=== PATIENT | female | born 1995 | race Caucasian/White ===

== ENCOUNTER 2020-10-23 13:59 | Outpatient (RCR) | payer MEDICAID ==
[~2020-10-23 13:59] MED LIST: NO HOME MEDICATIONS
== END 2021-01-21 | disposition still patient (30) ==
LOC: PT
DX: M54.42 Lumbago with sciatica, left side (principal); M54.41 Lumbago with sciatica, right side; G89.29 Other chronic pain

== ENCOUNTER → 2021-10-04 | Outpatient (CLI) | payer MEDICAID | LOC: RAD 19:00 | DX: M54.41 Lumbago with sciatica, right side (principal); M54.42 Lumbago with sciatica, left side; G89.29 Other chronic pain ==

== ENCOUNTER 2023-05-31 12:57 | Emergency (ER) | payer MEDICAID ==
[~2023-05-31] VITALS: Ht 162.6 cm; Wt 54.4 kg
[~2023-05-31 12:57] MED LIST changes: +BUSPIRONE5 MG PO; +CYCLOBENZ5 MG PO; +MELOXICAM15 MG PO; +MIRENA52 MG IU; +PREGABALIN150 MG PO; +PROAIR HFA0.09 MG/AC IH
[2023-05-31] MEDS ORDERED: DULOXETINE60 MG PO (13:05)
[2023-05-31] MEDS ORDERED: ROBAXIN 75750 MG/TA1 PO (13:05)
[2023-05-31 14:40] VITALS: BP 124/87
== END 2023-05-31 14:40 | disposition home or self-care (01) ==
LOC: ED 12:57
DX: M94.0 Chondrocostal junction syndrome [Tietze] (principal)

== ENCOUNTER 2023-10-13 10:41 | Emergency (ER) | payer MEDICAID ==
[~2023-10-13 10:41] MED LIST changes: +DULOXETINE60 MG PO; +ROBAXIN 75750 MG/TA1 PO
== END 2023-10-13 13:12 | disposition home or self-care (01) ==
LOC: ED 10:41
DX: R07.81 Pleurodynia (principal); J34.89 Other specified disorders of nose and nasal sinuses; W19.XXXA Unspecified fall, initial encounter

== ENCOUNTER → 2024-01-06 | Outpatient (CLI) | payer MEDICAID | LOC: RAD 11:04 | DX: S62.634G Displaced fracture of distal phalanx of right ring finger, subsequent encounter for fracture with delayed healing (principal) ==

== ENCOUNTER → 2024-01-23 | Outpatient (CLI) | payer MEDICAID ==
[~2024-01-23] MED LIST changes: +Gadoterate 20 ML VIAL IV ONE
== END ==
LOC: RAD 09:45
DX: M85.38 Osteitis condensans, other site (principal); Z97.5 Presence of (intrauterine) contraceptive device
CPT/HCPCS: A9575